=== PATIENT | male | born 1950 ===

== ENCOUNTER 2021-12-10 09:32 | Emergency (ER) | payer OTHER ==
[~2021-12-10] VITALS: Ht 162.6 cm; Wt 68.0 kg
[2021-12-10] MEDS ORDERED: ZESTRIL40 M1 (09:40)
[2021-12-10] MEDS ORDERED: GLUMETZA1000 MG (09:40)
[2021-12-10] MEDS ORDERED: GLIPIZIDE XL10 MG (09:41)
[2021-12-10] MEDS ORDERED: CIPRO500 MG PO (14:54)
[2021-12-10] MEDS ORDERED: TAMS0.4C PO (14:57)
== END 2021-12-10 17:17 | disposition home or self-care (01) ==
LOC: ER 09:32
DX: N39.0 Urinary tract infection, site not specified (principal); B96.1 Klebsiella pneumoniae [K. pneumoniae] as the cause of diseases classified elsewhere; E11.9 Type 2 diabetes mellitus without complications; Z79.84 Long term (current) use of oral hypoglycemic drugs; I10 Essential (primary) hypertension